=== PATIENT | female | born 1930 | race Caucasian/White ===

== ENCOUNTER 2017-07-02 14:07 | Inpatient (IN) | payer MEDICARE, OTHER ==
[~2017-07-02] VITALS: Ht 152.4 cm; Wt 83.7 kg
[~2017-07-02 14:07] MED LIST: AMOXICILLIN 8751 TAB PO; ASPIRIN 81M81 MG/TA2 PO; ASPIRIN REC; BENADRYL25 M2 PO; BENICAR 20MG TA20 MG PO; COUMADIN4 MG PO; COZAAR100 MG PO; DETROL LA4 PO; INDERAL80 MG PO; JANTOVEN5 MG PO; LOVENOX 100100 MG/ML SQ; MAXZIDE 50 MG-71 TAB PO; MULTI VITAMINS1 TAB PO; NORCO 325 MG-51 TAB PO; PROPRANOLOL ER80 MG PO; ROCEPHIN 2GM VIAL21 IV; SIMVASTATIN10 MG PO; SUP REC; ULTRAM 50MG TAB50 MG PO; VITAMINE200 PO; WARFARIN SOD5 MG PO; WARFARIN4 MG PO
[2017-07-02] MEDS ORDERED: TOPROL XL 50MG50 MG PO (14:37)
[2017-07-02] MEDS ORDERED: OCUVITE1 TA1 PO (14:41)
[2017-07-02] MEDS ORDERED: CALCIUM 600MG+D1 TAB PO (14:42)
[2017-07-02] MEDS ORDERED: VITAMIN C500 MG PO (14:43)
[2017-07-02] MEDS ORDERED: LASIX 20MG TABL20 MG (14:43)
[2017-07-02 15:34] LABS: COLLECTION METHOD CLEAN CATCH
[2017-07-02 15:52] LABS: BASO % 0.3 % (0.0-2.0); EOS # 0.4 (0.0-0.7); EOS % 4.9 % (0-4.0); GRAN # 5.2 (1.4-6.5); GRAN % 67.3 % (42.2-75.2); LYMPH # 1.5 (1.2-3.4); LYMPH % 19.7 % (20.0-51.0); MEAN CELL VOLUME 96 fl (80.0-100.0); MEAN CORPUSCULAR HEMOGLOBIN 29 pg (27.0-31.0); MEAN CORPUSCULAR HGB CONC 31 g/dl (33.0-37.0); MONO # 0.6 (0.1-0.6); MONO % 7.2 % (1.7-9.3); PLATELET COUNT 196 K/mm3 (130-400); RED BLOOD COUNT 4.08 M/mm3 (4.10-5.30); WHITE BLOOD COUNT 7.7 K/mm3 (4.8-10.8)
[2017-07-02 15:53] LABS: PROTHROMBIN TIME 34.6 SECONDS (9.7-12.8)
[2017-07-02 15:57] LABS: ADJUSTED CALCIUM 10.7 mg/dL (8.4-10.2); BILIRUBIN,TOTAL 0.9 mg/dL (0.0-1.0); CALCIUM 10.7 mg/dL (8.4-10.2); CREATININE, serum 1.31 mg/dL (0.52-1.25); POTASSIUM 3.8 mmol/L (3.4-5.0); TOTAL PROTEIN 6.9 gm/dL (6.4-8.2)
[2017-07-02 16:08] LABS: TROPONIN-I 0.022 ng/mL (0.000-0.034)
[2017-07-02 16:39] LABS: MUCOUS Present /lpf; PH 7 (5-8); SQUAMOUS EPITHELIAL 0-2 /hpf; URINE APPEARANCE Cloudy; URINE BACTERIA Many /hpf; URINE BILIRUBIN Negative (NEGATIVE); URINE BLOOD 2+ (NEGATIVE); URINE COLOR Yellow; URINE GLUCOSE Negative (NEGATIVE); URINE KETONE Negative (NEGATIVE); URINE LEUKOCYTE ESTERASE Trace (NEGATIVE); URINE PROTEIN(semi-quant) Negative (NEGATIVE); URINE UROBILINOGEN Negative (NEGATIVE)
[2017-07-02 16:50] LABS: ERYTHROCYTE SEDIMENTATION RATE 15 mm/hr (0-30)
[2017-07-02 18:33] VITALS: BP 174/98; PULSE 97; TEMP 97.6
[2017-07-02 23:49] VITALS: BP 159/82; PULSE 79; TEMP 98.5
[2017-07-03 02:27] VITALS: BP 152/64; PULSE 82; TEMP 98.6
[2017-07-03 07:35] VITALS: BP 123/46; PULSE 91; PULSE 912; TEMP 98.3
[2017-07-03 07:37] LABS: CALCIUM 9.5 mg/dL (8.4-10.2); CHOLESTEROL RISK RATIO 2.7; CREATININE, serum 1.22 mg/dL (0.52-1.25); POTASSIUM 3.1 mmol/L (3.4-5.0)
[2017-07-03 12:24] LABS: INR 2.5 (0.8-3.0); PROTHROMBIN TIME 28.6 SECONDS (9.7-12.8)
[2017-07-03 13:10] VITALS: BP 155/58; PULSE 87; TEMP 97.4
[2017-07-03 16:39] VITALS: BP 132/54; PULSE 76; TEMP 98.8
[2017-07-03 22:01] VITALS: BP 134/62; PULSE 83; TEMP 98.2
[2017-07-03 23:15] VITALS: BP 147/58; PULSE 89
[2017-07-04] VITALS (7 sets, daily range): BP systolic 113–174; BP diastolic 47–82; PULSE 74–86; TEMP 97.9–98.5
[2017-07-04 06:57] LABS: BASO % 0.2 % (0.0-2.0); EOS # 0.6 (0.0-0.7); EOS % 8.9 % (0-4.0); GRAN # 4.2 (1.4-6.5); LYMPH # 1.2 (1.2-3.4); LYMPH % 18.4 % (20.0-51.0); MEAN CELL VOLUME 95 fl (80.0-100.0); MEAN CORPUSCULAR HGB CONC 31 g/dl (33.0-37.0); MEAN PLATELET VOLUME 9.6 fl (7.4-10.4); MONO # 0.5 (0.1-0.6); MONO % 7.2 % (1.7-9.3); PLATELET COUNT 176 K/mm3 (130-400); RED BLOOD COUNT 3.55 M/mm3 (4.10-5.30); WHITE BLOOD COUNT 6.5 K/mm3 (4.8-10.8)
[2017-07-04 06:59] LABS: HEMATOCRIT 33.8 % (37.0-47.0); HEMOGLOBIN 10.4 g/dl (12.5-16.0); MEAN CORPUSCULAR HEMOGLOBIN 29 pg (27.0-31.0)
[2017-07-04 07:03] LABS: INR 2.2 (0.8-3.0); PROTHROMBIN TIME 25.5 SECONDS (9.7-12.8)
[2017-07-04 07:23] LABS: CALCIUM 8.9 mg/dL (8.4-10.2); CREATININE, serum 1.25 mg/dL (0.52-1.25); POTASSIUM 3.3 mmol/L (3.4-5.0)
[2017-07-05 00:39] VITALS: BP 125/77; PULSE 85; TEMP 98.4
[2017-07-05 03:04] VITALS: BP 135/52; PULSE 77; TEMP 98.5
[2017-07-05 07:00] VITALS: BP 125/44; PULSE 81; TEMP 98.2
[2017-07-05 08:12] LABS: BASO % 0.1 % (0.0-2.0); EOS # 0.7 (0.0-0.7); EOS % 10.4 % (0-4.0); GRAN # 4.4 (1.4-6.5); GRAN % 63.2 % (42.2-75.2); LYMPH # 1.3 (1.2-3.4); LYMPH % 18.1 % (20.0-51.0); MEAN CELL VOLUME 94 fl (80.0-100.0); MEAN CORPUSCULAR HGB CONC 31 g/dl (33.0-37.0); MEAN PLATELET VOLUME 9.5 fl (7.4-10.4); MONO # 0.5 (0.1-0.6); MONO % 7.6 % (1.7-9.3); PLATELET COUNT 164 K/mm3 (130-400); RED BLOOD COUNT 3.49 M/mm3 (4.10-5.30)
[2017-07-05 08:18] LABS: PROTHROMBIN TIME 22.6 SECONDS (9.7-12.8)
[2017-07-05 08:19] LABS: HEMATOCRIT 32.9 % (37.0-47.0); HEMOGLOBIN 10.2 g/dl (12.5-16.0); MEAN CORPUSCULAR HEMOGLOBIN 29 pg (27.0-31.0)
[2017-07-05 08:30] LABS: CALCIUM 8.5 mg/dL (8.4-10.2); CREATININE, serum 1.32 mg/dL (0.52-1.25); POTASSIUM 3.8 mmol/L (3.4-5.0)
[2017-07-05 10:55] VITALS: BP 123/96; PULSE 79; TEMP 97.9
[2017-07-05] MEDS ORDERED: AMOXICILLIN 8751 TAB PO (16:18)
[2017-07-05] MEDS ORDERED: ZESTRIL 10MG10 MG PO (16:21)
== END 2017-07-05 18:00 | disposition home or self-care (01) | DRG 287 ==
LOC: COL.ER 14:07 → MEDICAL 17:32
PROVIDERS: Emergency Medicine; Family Medicine; Physician Assistant
PROC: B2111ZZ Fluoroscopy of Multiple Coronary Arteries using Low Osmolar Contrast (ICD-10-PCS; principal; 2017-07-04)
PROC: B2151ZZ Fluoroscopy of Left Heart using Low Osmolar Contrast (ICD-10-PCS; 2017-07-04)
PROC: 4A023N6 Measurement of Cardiac Sampling and Pressure, Right Heart, Percutaneous Approach (ICD-10-PCS; 2017-07-04)
DX: I11.0 Hypertensive heart disease with heart failure (principal); N39.0 Urinary tract infection, site not specified; N17.9 Acute kidney failure, unspecified; I50.33 Acute on chronic diastolic (congestive) heart failure; I27.22 Pulmonary hypertension due to left heart disease; I48.2 Chronic atrial fibrillation; E87.6 Hypokalemia; I07.1 Rheumatic tricuspid insufficiency; Z79.01 Long term (current) use of anticoagulants; B96.20 Unspecified Escherichia coli [E. coli] as the cause of diseases classified elsewhere; Z87.891 Personal history of nicotine dependence; J01.40 Acute pansinusitis, unspecified
CPT/HCPCS: 99222-AI; 99231-AI; 99239; G0378; G8978-GP; G8979-GP; J1940; J2250; J2405; J3010; J3480; J7030